=== PATIENT | male | born 1965 | race Caucasian/White ===

== ENCOUNTER 2022-05-26 11:12 | Day surgery (SDC) | payer MEDICARE, MEDICAID ==
[2022-05-26] VITALS (14 sets, daily range): BP systolic 90–130; BP diastolic 44–77
[~2022-05-26] VITALS: Ht 185.4 cm; Wt 111.7 kg
[2022-05-26] MEDS ORDERED: APIX5TAB3 PO (11:57)
[2022-05-26] MEDS ORDERED: POTA8TAB69 PO (11:57)
[2022-05-26] MEDS ORDERED: ASPI-147 PO (11:57)
[2022-05-26] MEDS ORDERED: FURO40TA4 PO (11:57)
[2022-05-26] MEDS ORDERED: tylenol PEG (11:57)
[2022-05-26] MEDS ORDERED: TADA10TA14 PO (11:57)
[2022-05-26] MEDS ORDERED: MULT-227 PO (11:57)
[2022-05-26] MEDS ORDERED: NORTRIPTYLINE HCL PO (11:57)
[2022-05-26] MEDS ORDERED: BUPR1FIL3 SL (11:57)
[2022-05-26] MEDS ORDERED: METO-395 PO (11:57)
[2022-05-26] MEDS ORDERED: SOTA80TA PO (11:57)
[2022-05-26] MEDS ORDERED: PREG200C PO (11:57)
[2022-05-26] MEDS ORDERED: HYDR-3686 PO (11:57)
[2022-05-26] MEDS ORDERED: SILD50TA53 PO (11:57)
[2022-05-26] MEDS ORDERED: TRAZ-256 PO (11:57)
[2022-05-26] MEDS ORDERED: LEVO200T8 PO (11:57)
[2022-05-26] MEDS ORDERED: BACL10TA2 PO (11:57)
[2022-05-26 12:24] LABS: ALBUMIN 4.9 G/DL (3.4-5.0); ANION GAP 5 (8-16); BLOOD UREA NITROGEN 18 MG/DL (7-18); BUN/CREATININE RATIO 19.4 (5.4-32.0); CALCIUM 9.6 MG/DL (8.5-10.1); CHLORIDE 98 MMOL/L (99-107); CREATININE 0.93 MG/DL (0.60-1.10); GLUCOSE 66 MG/DL (70-104); POTASSIUM 4.1 MMOL/L (3.5-5.1); SODIUM 137 MMOL/L (135-145); TOTAL CARBON DIOXIDE 33.9 MMOL/L (24-32); eGFR 83 ML/MIN
[2022-05-26 12:26] LABS: BASOPHILS % (AUTO) 0.5 % (0-1); EOSINOPHILS # (AUTO) 0.2 X10'3 (0-0.9); EOSINOPHILS % (AUTO) 2.8 % (0-6); LYMPHOCYTES # (AUTO) 0.9 X10'3 (1.1-4.8); LYMPHOCYTES % (AUTO) 14.6 % (21-51); MEAN CORPUSCULAR HEMOGLOBIN 28.1 PG (27.0-31.0); MEAN CORPUSCULAR HGB CONC 32.6 g/dL (33.0-36.5); MEAN CORPUSCULAR VOLUME 86.4 FL (78-98); MONOCYTES # (AUTO) 0.5 X10'3 (0-0.9); MONOCYTES % (AUTO) 7.7 % (2-12); NEUTROPHILS # (AUTO) 4.4 X10'3 (1.8-7.7); NEUTROPHILS % (AUTO) 74.4 % (42-75); PLATELET COUNT 123 X10'3 (140-440); RED BLOOD COUNT 6.49 X10'6 (4.70-6.10); RED CELL DISTRIBUTION WIDTH 15.4 % (11.5-14.5); WHITE BLOOD COUNT 5.9 X10'3 (4.5-11.0)
[2022-05-26 12:27] LABS: HEMOGLOBIN 18.3 g/dl (14.0-17.9)
[2022-05-26] MEDS ORDERED: fentaNYL/PF 50MCG/1 ML 2ML syringe IV ONE (12:45)
[2022-05-26] MEDS ORDERED: MIDAZolam 1mg/ml 10ml vial IV ONE (12:45)
[2022-05-26] MEDS ORDERED: normal saline 1000ml 1,000 ML IV SCH (12:45)
== END 2022-05-26 15:05 | disposition home or self-care (01) ==
LOC: SSTAY O 11:12
PROVIDERS: ATTEND Student in an Organized Health Care Education/Training Program
DX: I48.91 Unspecified atrial fibrillation (principal); G47.33 Obstructive sleep apnea (adult) (pediatric); E11.9 Type 2 diabetes mellitus without complications; I10 Essential (primary) hypertension; J44.9 Chronic obstructive pulmonary disease, unspecified; I27.20 Pulmonary hypertension, unspecified; Z79.899 Other long term (current) drug therapy; Z98.890 Other specified postprocedural states
CPT/HCPCS: 36415; 80048; 82948; 85025; 85610; 92960; 93005; J2250; J3010; J7030; A4620

== ENCOUNTER 2022-05-31 08:44 | Emergency (ER) | payer MEDICARE, MEDICAID ==
[~2022-05-31] VITALS: Ht 185.4 cm; Wt 110.9 kg
[~2022-05-31 08:44] MED LIST: APIX5TAB3 PO; ASPI-147 PO; BACL10TA2 PO; BUPR1FIL3 SL; FURO40TA4 PO; HYDR-3686 PO; LEVO200T8 PO; METO-395 PO; MULT-227 PO; NORTRIPTYLINE HCL PO; POTA8TAB69 PO; PREG200C PO; SILD50TA53 PO; SOTA80TA PO; TADA10TA14 PO; TRAZ-256 PO; tylenol PEG
--- NOTE | 2022-05-31 09:08 | NUR ---
ECHO PERFOMRED ON WED BY DR DUMONT. "SPINAL CORD STIMULATOR".
[2022-05-31] MEDS ORDERED: normal saline 1000ML IV soln IVB ONE (09:20)
[2022-05-31] MEDS ORDERED: diltiazem 5mg/ml 5ml inj. IV ONE (09:20)
[2022-05-31 09:42] LABS: BASOPHILS # (AUTO) 0.1 X10'3 (0-0.2); BASOPHILS % (AUTO) 1.2 % (0-1); EOSINOPHILS # (AUTO) 0.3 X10'3 (0-0.9); EOSINOPHILS % (AUTO) 4.6 % (0-6); HEMATOCRIT 55.3 % (42.0-52.0); LYMPHOCYTES # (AUTO) 0.8 X10'3 (1.1-4.8); LYMPHOCYTES % (AUTO) 13.7 % (21-51); MEAN CORPUSCULAR HEMOGLOBIN 28.2 PG (27.0-31.0); MEAN CORPUSCULAR HGB CONC 32.7 g/dL (33.0-36.5); MEAN CORPUSCULAR VOLUME 86.2 FL (78-98); MEAN PLATELET VOLUME 7.7 FL (7.4-10.4); MONOCYTES # (AUTO) 0.4 X10'3 (0-0.9); MONOCYTES % (AUTO) 7.5 % (2-12); NEUTROPHILS # (AUTO) 4.2 X10'3 (1.8-7.7); PLATELET COUNT 139 X10'3 (140-440); RED BLOOD COUNT 6.42 X10'6 (4.70-6.10); RED CELL DISTRIBUTION WIDTH 15.2 % (11.5-14.5); WHITE BLOOD COUNT 5.8 X10'3 (4.5-11.0)
[2022-05-31 09:45] LABS: HEMOGLOBIN 18.1 g/dl (14.0-17.9)
[2022-05-31 09:46] LABS: ALANINE AMINOTRANSFERASE 20 U/L (12-78); ALBUMIN 4.1 G/DL (3.4-5.0); ALBUMIN/GLOBULIN RATIO 1.3 (1.1-1.5); ALKALINE PHOSPHATASE 59 IU/L (46-116); ANION GAP 3 (8-16); ASPARTATE AMINO TRANSFERASE 16 U/L (10-37); BILIRUBIN,TOTAL 1.1 MG/DL (0.1-1.0); BLOOD UREA NITROGEN 12 MG/DL (7-18); BUN/CREATININE RATIO 12.6 (5.4-32.0); CALCIUM 9.1 MG/DL (8.5-10.1); CHLORIDE 99 MMOL/L (99-107); CREATININE 0.95 MG/DL (0.60-1.10); GLUCOSE 111 MG/DL (70-104); SODIUM 140 MMOL/L (135-145); TOTAL CARBON DIOXIDE 38.4 MMOL/L (24-32); TOTAL PROTEIN 7.3 G/DL (6.4-8.2); eGFR 81 ML/MIN
[2022-05-31] MEDS ORDERED: normal saline 1000ml 1,000 ML IV ONE (10:10)
[2022-05-31] MEDS ORDERED: etomidate 2mg/ml inj. IV ONE (12:35)
[2022-05-31] MEDS ORDERED: fentaNYL/PF 50MCG/1 ML 2ML syringe IV ONE (12:35)
[2022-05-31] MEDS ORDERED: amiodarone 150mg/dext, iso-os 100 ML IV ONE (12:49)
[2022-05-31] MEDS ORDERED: AMIO200T61 PO (14:24)
--- NOTE | 2022-05-31 14:26 | NUR ---
RELIEVING RN FOR LUNCH, PT AMB WITH CANE AROUND ER, STEADY GAIT, NO ASSISTANCE NEEDED
[2022-05-31 15:21] VITALS: BP 114/85
== END 2022-05-31 15:36 | disposition home or self-care (01) ==
LOC: ER 08:45
DX: I48.20 Chronic atrial fibrillation, unspecified (principal); R00.2 Palpitations; R07.89 Other chest pain; R06.02 Shortness of breath; E03.9 Hypothyroidism, unspecified; G89.29 Other chronic pain; F17.200 Nicotine dependence, unspecified, uncomplicated; Z90.49 Acquired absence of other specified parts of digestive tract; Z90.89 Acquired absence of other organs; Z98.890 Other specified postprocedural states; Z79.82 Long term (current) use of aspirin; Z79.899 Other long term (current) drug therapy
CPT/HCPCS: 36415; 71045; 80053; 83880; 84484; 85025; 92960; 93005; 96361; 96374; 96375; 99285; J0282; J3010; J3490; J7030

== ENCOUNTER 2022-10-29 09:28 | Observation (INO) | payer MEDICARE, MEDICAID ==
[~2022-10-29] VITALS: Ht 185.4 cm; Wt 100.9 kg
[2022-10-29] MEDS ORDERED: nitroGLYCERIN 0.4mg SUBLingual tab SL PRN ×3 (09:40→13:20)
[2022-10-29] MEDS ORDERED: aspirin 81mg tab.chew PO ONE (09:40)
[2022-10-29 09:43] LABS: BASOPHILS % (AUTO) 0.9 % (0-1); EOSINOPHILS # (AUTO) 0.1 X10'3 (0-0.9); EOSINOPHILS % (AUTO) 2.7 % (0-6); HEMATOCRIT 44.3 % (42.0-52.0); HEMOGLOBIN 14.7 g/dl (14.0-17.9); LYMPHOCYTES # (AUTO) 0.5 X10'3 (1.1-4.8); LYMPHOCYTES % (AUTO) 14.8 % (21-51); MEAN CORPUSCULAR HEMOGLOBIN 29.3 PG (27.0-31.0); MEAN CORPUSCULAR HGB CONC 33.1 g/dL (33.0-36.5); MEAN CORPUSCULAR VOLUME 88.4 FL (78-98); MEAN PLATELET VOLUME 6.1 FL (7.4-10.4); MONOCYTES # (AUTO) 0.3 X10'3 (0-0.9); MONOCYTES % (AUTO) 8.3 % (2-12); NEUTROPHILS # (AUTO) 2.6 X10'3 (1.8-7.7); NEUTROPHILS % (AUTO) 73.3 % (42-75); PLATELET COUNT 128 X10'3 (140-440); RED BLOOD COUNT 5.01 X10'6 (4.70-6.10); RED CELL DISTRIBUTION WIDTH 14.6 % (11.5-14.5); WHITE BLOOD COUNT 3.5 X10'3 (4.5-11.0)
[2022-10-29] MEDS ORDERED: morphine 4 MG/ML inj SYRINge IV PRN (09:55)
[2022-10-29] MEDS ORDERED: normal saline 1000ML IV soln IVB ONE (09:55)
[2022-10-29] MEDS ORDERED: ondansetron/PF 4mg/2ml inj IV ONE (09:55)
[2022-10-29 10:06] LABS: ALANINE AMINOTRANSFERASE 21 U/L (12-78); ALBUMIN/GLOBULIN RATIO 1.5 (1.1-1.5); ALKALINE PHOSPHATASE 45 IU/L (46-116); ANION GAP 4 (8-16); ASPARTATE AMINO TRANSFERASE 21 U/L (10-37); BILIRUBIN,TOTAL 0.8 MG/DL (0.1-1.0); BLOOD UREA NITROGEN 18 MG/DL (7-18); BUN/CREATININE RATIO 18.8 (5.4-32.0); CHLORIDE 101 MMOL/L (99-107); CREATININE 0.96 MG/DL (0.60-1.10); GLUCOSE 104 MG/DL (70-104); MAGNESIUM 2.1 MG/DL (1.5-2.4); POTASSIUM 3.7 MMOL/L (3.5-5.1); SODIUM 141 MMOL/L (135-145); TOTAL CARBON DIOXIDE 36.4 MMOL/L (24-32); TOTAL PROTEIN 6.7 G/DL (6.4-8.2); eGFR 80 ML/MIN
[2022-10-29] MEDS ORDERED: iohexol 350MG/ML 100ml bottle IV ONE (10:30)
[2022-10-29] MEDS ORDERED: ACET-2615 PO (10:57)
[2022-10-29] MEDS ORDERED: AMIO200T61 PO (10:57)
[2022-10-29] MEDS ORDERED: VITA-365 SL (10:57)
[2022-10-29] MEDS ORDERED: FERR-39 PO (10:57)
[2022-10-29] MEDS ORDERED: DICL20GE TOP (10:57)
[2022-10-29] MEDS ORDERED: DULO60CA59 PO (10:57)
[2022-10-29] MEDS ORDERED: GABA-534 PO (10:57)
[2022-10-29] MEDS ORDERED: LEVO25CA4 PO (10:57)
[2022-10-29] MEDS ORDERED: CHOL100046 PO (10:57)
[2022-10-29] MEDS ORDERED: TEST200V33 IM ×2 (10:57→15:18)
[2022-10-29] MEDS ORDERED: SENN-108 PO (10:57)
[2022-10-29] MEDS ORDERED: BUPR1FIL5 SL (11:00)
[2022-10-29] MEDS ORDERED: buprenorphine/naloxone 8MG-2MG SUBlingual film SL SCH ×2 (11:50→20:00)
[2022-10-29] MEDS ORDERED: buprenorphine/naloxone 2-0.5mg sublingual tablet SL SCH (13:05)
[2022-10-29] MEDS ORDERED: ondansetron/PF 4mg/2ml inj IV PRN (13:20)
[2022-10-29] MEDS ORDERED: potassium Cl 20 mEq SR tablet PO PRN ×2 (13:20)
[2022-10-29] MEDS ORDERED: magnesium Cl slow-release 64mg tablet PO PRN (13:20)
[2022-10-29] MEDS ORDERED: metoprolol tartrate 1mg/ml inj IV PRN (13:20)
[2022-10-29] MEDS ORDERED: morphine 2 MG/ML inj. syringe IV PRN ×2 (13:20)
[2022-10-29] MEDS ORDERED: potassium Cl 40MEQ/1/2NS 520ml 520 ML IV PRN (13:20)
[2022-10-29] MEDS ORDERED: regadenoson 0.4mg/5ml syringe IV PRN (13:20)
[2022-10-29] MEDS ORDERED: mag hydrox/Alum hydrox/simeth 30ml oral suspension PO PRN (13:20)
[2022-10-29] MEDS ORDERED: ondansetron 4mg rapidly disintigrating tab PO PRN (13:20)
[2022-10-29] MEDS ORDERED: magnesium 4gm in 100ml NS 100 ML IV PRN (13:20)
[2022-10-29] MEDS ORDERED: aminophylline 250mg/10ml inj. IV PRN (13:20)
[2022-10-29] MEDS ORDERED: acetaminophen 325mg tablet PO PRN (13:20)
[2022-10-29] MEDS ORDERED: PERFLUTREN PROTEIN-A MICROSPHR (Optison) 0.22 MG/ML 3ML VIAL IV ONE (13:20)
[2022-10-29] MEDS ORDERED: magnesium hydroxide 30ml (MOM) UD suspension PO PRN (13:20)
[2022-10-29] MEDS ORDERED: FLO0.4C PO (15:17)
[2022-10-29] MEDS ORDERED: GABA300C PO (15:17)
[2022-10-29] MEDS ORDERED: BACL-11 PO (15:17)
[2022-10-29] MEDS ORDERED: LEVO200T8 PO (15:17)
[2022-10-29] MEDS ORDERED: SILD50TA53 PO (15:18)
[2022-10-29] MEDS ORDERED: ALBU18HF2 INH (15:21)
[2022-10-29] MEDS ORDERED: POLY510P31 PO (15:21)
[2022-10-29] MEDS ORDERED: FLUT1BLS4 PO (15:21)
[2022-10-29] MEDS ORDERED: CYAN100087 SL (15:31)
--- NOTE | 2022-10-29 17:02 | NUR ---
PATIENT IS UNCOMFORTABLE AND REQUESTING ROUTINE MEDICATIONS ARE RESUMED, SPECIFICALLY TYLENOL, GABAPENTIN, VIAGRA, AND HYDROXYZINE. MESSAGE SENT TO DR. MCLAUGHLIN WITH PATIENT REQUEST. PAGER ID: [phone] MESSAGE: ER BED #10 JOVANY. PATIENT IS REQUESTING MEDS TO BE RESUMED FOR ANXIETY AND PAIN FROM ACHALASIA, SPECIFICALLY THE TYLENOL, GABAPENTIN, VIAGRA, AND HYDROXYZINE. THANKS, JADYN DICK AT EXT. [phone].
[2022-10-29] MEDS ORDERED: albuterol 2.5 MG/3 ML nebule NEB PRN (17:10)
[2022-10-29] MEDS ORDERED: sennosides/docusate sodium tablet PO PRN (17:10)
[2022-10-29] MEDS ORDERED: hydrOXYzine 25 MG tablet PO PRN (17:10)
[2022-10-29] MEDS ORDERED: sildenafil citrate 20mg tablet PO PRN (17:10)
[2022-10-29 17:19] LABS: POTASSIUM 3.7 MMOL/L (3.5-5.1)
[2022-10-29] MEDS ORDERED: gabapentin 300mg capsule PO ONE (17:30)
[2022-10-29 17:43] VITALS: BP 129/87
[2022-10-29] MEDS ORDERED: K and/or MAG REPLACEMENT MC SCH (20:00)
[2022-10-29] MEDS ORDERED: potassium chloride 8mEq ER tablet PO SCH (20:00)
[2022-10-29] MEDS ORDERED: docusate sod 100mg capsule PO SCH (20:00)
[2022-10-29] MEDS ORDERED: apixaban 5mg tablet PO SCH (20:00)
[2022-10-29] MEDS ORDERED: furosemide 40mg tablet PO SCH (20:00)
[2022-10-29] MEDS ORDERED: ferrous sulfate 325mg tablet PO SCH (20:00)
--- NOTE | 2022-10-29 20:50 | NUR ---
PT DID NOT RECIEVE EVENING MEDICATIONS PRIOR TO REQUESTING TO LEAVE AMA. PT ENCOURAGED TO TAKE MEDS. DR CHRIS HUTCHISON.
[2022-10-29] MEDS ORDERED: traZODone 50mg tablet PO SCH (21:00)
[2022-10-29] MEDS ORDERED: cetirizine 10mg tablet PO SCH (21:00)
[2022-10-29] MEDS ORDERED: duloxetine 30mg CAPSULE.DR PO SCH (21:00)
[2022-10-29] MEDS ORDERED: polyethylene glycol 3350 17gm powd pack PO SCH (21:00)
[2022-10-29] MEDS ORDERED: tamsulosin 0.4mg capsule PO SCH (21:00)
[2022-10-29] MEDS ORDERED: temazepam 15mg capsule PO PRN (21:00)
[2022-10-29] MEDS ORDERED: baclofen 10mg tablet PO SCH (21:00)
[2022-10-30] MEDS ORDERED: gabapentin 300mg capsule PO SCH
[2022-10-30] MEDS ORDERED: levoTHYROXINE 100mcg tablet PO SCH (07:00)
[2022-10-30] MEDS ORDERED: levoTHYROXINE 25mcg tablet PO SCH (07:00)
[2022-10-30] MEDS ORDERED: Fluticasone/Umeclidin/Vilanter (Trelegy Ellipta 100-62.5-25 IH SCH (08:00)
[2022-10-30] MEDS ORDERED: amiodarone 200mg tablet PO SCH (08:00)
[2022-10-30] MEDS ORDERED: fluticasone nasal spray 16GM bottle NS SCH (08:00)
[2022-10-30] MEDS ORDERED: baclofen 10mg tablet PO SCH (08:00)
[2022-10-30] MEDS ORDERED: aspirin 81mg tab.chew PO SCH (08:30)
== END 2022-10-30 17:14 | disposition home or self-care (01) ==
LOC: ER 09:28 → ED HOLD 13:28
PROVIDERS: ADMIT Family Medicine; ATTEND Family Medicine
DX: I20.9 Angina pectoris, unspecified (principal); R63.4 Abnormal weight loss; G89.4 Chronic pain syndrome; E03.9 Hypothyroidism, unspecified; I10 Essential (primary) hypertension; I48.91 Unspecified atrial fibrillation; Z66 Do not resuscitate; Z79.891 Long term (current) use of opiate analgesic; Z79.899 Other long term (current) drug therapy
CPT/HCPCS: 36415; 71045; 71275; 74174; 80053; 83735; 83880; 84132; 84443; 84484; 85025; 93005; 93306; 94760; 96360; 99285; G0378; J3490; J7030; Q0177; Q9967